=== PATIENT | male | born 1970 | race Caucasian/White ===

== ENCOUNTER → 2020-03-27 | Outpatient (CLI) | payer BC ==
--- NOTE | 2020-03-27 12:21 | RAD ---
EXAM DESCRIPTION: Wrist,Right 3 Views CLINICAL HISTORY: 49 years, Male, PAIN IN RIGHT WRIST COMPARISON: 12/28/2019 TECHNIQUE: Frontal, lateral, and oblique views of the Right wrist was obtained. FINDINGS/IMPRESSION: Images of the Right wrist demonstrate mild cortical irregularity involving the fifth metacarpal neck representing an age-indeterminate nondisplaced fracture, for correlation with point tenderness at this location. No other fracture is identified. 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 The soft tissues are unremarkable. Electronically signed by: Kvng Jackson DO 03/27/2020 12:19 PM [facility]
== END ==
LOC: RAD 08:42
PROVIDERS: ATTEND Orthopaedic Surgery
DX: S62.366A Nondisplaced fracture of neck of fifth metacarpal bone, right hand, initial encounter for closed fracture (principal); M19.041 Primary osteoarthritis, right hand; M19.031 Primary osteoarthritis, right wrist